=== PATIENT | male | born 1950 | race Caucasian/White ===

== ENCOUNTER → 2017-08-26 | Outpatient (CLI) | payer OTHER | END | disposition home or self-care (01) | LOC: KCIC MRI 12:55 | DX: M50.222 Other cervical disc displacement at C5-C6 level (principal); M48.02 Spinal stenosis, cervical region; M25.78 Osteophyte, vertebrae; M12.88 Other specific arthropathies, not elsewhere classified, other specified site | CPT/HCPCS: 72141 ==

== ENCOUNTER → 2017-09-17 | Outpatient (CLI) | payer OTHER | END | disposition home or self-care (01) | LOC: PNCL 10:01 | DX: M54.2 Cervicalgia (principal); M19.90 Unspecified osteoarthritis, unspecified site; I10 Essential (primary) hypertension; I82.409 Acute embolism and thrombosis of unspecified deep veins of unspecified lower extremity | CPT/HCPCS: G0463 ==

== ENCOUNTER → 2017-09-28 | Outpatient (CLI) | payer OTHER ==
[2017-09-28 09:53] LABS: PROTHROMBIN TIME PATIENT 12.7 SEC (11.7-14.0)
== END | disposition home or self-care (01) ==
LOC: LAB 09:22
DX: Z51.81 Encounter for therapeutic drug level monitoring (principal); Z79.01 Long term (current) use of anticoagulants
CPT/HCPCS: 36415; 85610

== ENCOUNTER → 2017-09-28 | Outpatient (CLI) | payer OTHER ==
[~2017-09-28] MED LIST: IOHEXOL 180 MG/ML 10 ML VIAL.; LIDOCAINE 2% PF 2ML VIAL.; methylPREDNISolone ACETATE 40 MG/ML VIAL.; methylPREDNISolone ACETATE 80 MG/ML VIAL.
== END | disposition home or self-care (01) ==
LOC: PNCL 09:49
DX: M50.123 Cervical disc disorder at C6-C7 level with radiculopathy (principal); M48.02 Spinal stenosis, cervical region; I10 Essential (primary) hypertension; M19.90 Unspecified osteoarthritis, unspecified site; Z79.899 Other long term (current) drug therapy; I82.409 Acute embolism and thrombosis of unspecified deep veins of unspecified lower extremity
CPT/HCPCS: 62321; J1030; J1040; J2001; Q9965

== ENCOUNTER → 2017-11-12 | Outpatient (CLI) | payer OTHER ==
[~2017-11-12] MED LIST changes: +ALLO100T PO; +DESO60OI7 TP; +EZET10TA18 PO; +FLUT16SP NS; +FURO40TA4 PO; +HYDR59LO TP; -IOHEXOL 180 MG/ML 10 ML VIAL.; +LEVO5TAB2 PO; -LIDOCAINE 2% PF 2ML VIAL.; +LISI-334 PO; +MELA3TAB2 PO; +MULT-245 PO; +OMEG1CAP27 PO; +TAMS0.4C2 PO; +VIT1TABL32 PO; +WARF2TAB96 PO; +ZOLP5TAB5 PO; -methylPREDNISolone ACETATE 40 MG/ML VIAL.; -methylPREDNISolone ACETATE 80 MG/ML VIAL.
--- NOTE | 2017-11-12 14:12 | PAIN ---
DATE OF SERVICE: 11/12/2017 PROGRESS NOTE FOR PAIN CLINIC DIAGNOSIS: Cervical radiculopathy with cervical spinal stenosis and cervical degenerative disk disease. HISTORY OF PRESENT ILLNESS: The patient is a 67-year-old male who returns for followup status post cervical epidural steroid injection x 1. The patient reports he did very well with about a 75% improvement for one month following the injection. The patient reports the pain is returning now in the base of his neck and left upper extremity radiating into the left arm and left bicep and into the hand with numbness and tingling in the fingers on the left side. The patient reports it is aching, tight, tingling, on and off in intensity, but worse with activity, worse with using his left arm, raising his arm up or back and driving a car with his left hand. The patient reports it does not awaken him from sleep at night; however, he feels much better with sitting or lying down, worse with lifting items or use of the left shoulder. The patient reports the pain is a 3 on a scale of 10 at its worst, 2 on average, 1 at its least and is a 2 today. The patient reports no loss of motor function, but still significant radicular pain radiating into the left upper extremity in a C6-C7 dermatomal distribution. The patient reports no other complaints at this time. PHYSICAL EXAMINATION: VITAL SIGNS: The patient's blood pressure 140/85, pulse 81, respirations 18, temperature 98.2 degrees Fahrenheit, height is 6 feet, weight is 294 pounds. GENERAL: The patient is awake, alert, oriented, appropriate, very pleasant demeanor. HEENT: Head shows normocephalic, atraumatic. Extraocular movements are intact and symmetrical. Oral cavity: Mucous membranes are moist and pink. Dentition is intact. NECK: Shows anterior throat supple without palpable lymphadenopathy noted. Swallow reflex is symmetrical. CHEST: Shows normal on inspection. Breath sounds are clear to auscultation bilaterally. HEART: Shows S1, S2 clear. No murmurs auscultated. ABDOMEN: Soft, nontender, nondistended. No palpable organomegaly is noted. No rebound or guarding demonstrated. BACK: Shows spine grossly in the midline. Cervical paraspinous muscle shows symmetrical on inspection, on palpation shows some moderate tenderness diffusely in the middle and lower aspect of the cervical paraspinous muscles into the superior left trapezius and medial aspect as well. The patient shows good rotational motion of cervical spine with some minor tenderness with far left lateral rotation past 45 degrees, but not with right lateral rotation, extension or flexion. EXTREMITIES: The patient's upper extremities show deep tendon reflexes at 2+ in the biceps and triceps tendons. Motor exam is approximately 4 on a scale of 5 with vocal teacher strength on the left and 5/5 on the right. Peripheral pulses are 2+ radial distribution. No peripheral edema is noted bilaterally. Shoulder shrug is strong and intact with some moderate tenderness with palpation on resistance on the left side with shoulder shrug as well as abduction of shoulder at 90 degrees, but without radiation and without loss of strength on resistance. Options were discussed with the patient. The patient's old chart was reviewed as his current medication regimen updated. Current review of systems updated today as well. We will preauthorize the patient for a second cervical epidural steroid injection. He did very well initially, about 75% improvement for the first month, now pain returning in a radicular fashion in left upper extremity in a C6-C7 dermatomal distribution. The patient is also taking Coumadin. We will have him hold this once again with PT and INR pending prior to his next appointment. We will plan on cervical epidural steroid injection #2 on his return. AKBAR CABRERA MD DR: REGGIE/luis a JOB#: [id number] / [id number]
== END | disposition home or self-care (01) ==
LOC: PNCL 10:19
PROVIDERS: ATTEND Anesthesiology
DX: M50.10 Cervical disc disorder with radiculopathy, unspecified cervical region (principal); M48.02 Spinal stenosis, cervical region; I10 Essential (primary) hypertension
CPT/HCPCS: G0463

== ENCOUNTER → 2017-12-02 | Outpatient (CLI) | payer OTHER ==
[~2017-12-02] MED LIST changes: +IOHEXOL 180 MG/ML 10 ML VIAL. ONE; +LIDOCAINE 2% PF 2ML VIAL. ONE; +methylPREDNISolone ACETATE 40 MG/ML VIAL. ONE; +methylPREDNISolone ACETATE 80 MG/ML VIAL. ONE
--- NOTE | 2017-12-02 23:54 | PAIN ---
DATE OF SERVICE: 12/02/2017 PROGRESS NOTE FOR PAIN CLINIC DIAGNOSES: Cervical radiculopathy with cervical spinal stenosis and cervical degenerative disk disease. HISTORY OF PRESENT ILLNESS: The patient is a 67-year-old male who returns for followup status post cervical epidural steroid injection x 1. The patient reports about 70% improvement for about a month following the injection. The patient reports still pain returning now in the base of the neck and left shoulder and upper extremity. The patient reports it is a 3 on a scale of 10 at its worst, 2 on average, 1 at its least but still returning with noticeable fatigue in the bilateral upper extremities. The patient reports it is aching, dull, tight, tingling, radiating, on and off in intensity, worse with activity using his left upper extremity repetitively. The patient reports it does not awaken him from sleep at night; however, he sleeps about 8 hours at a time without difficulties. No new motor or sensory deficits or other complaints. PHYSICAL EXAMINATION: VITAL SIGNS: The patient's blood pressure 151/86, pulse 88, respirations 18, temperature 97.8 degrees Fahrenheit, height 6 feet and weight is 299 pounds. GENERAL: The patient is awake, alert, oriented, appropriate and very pleasant demeanor. HEENT: Head shows normocephalic and atraumatic. Extraocular movements are intact and symmetrical. Oral cavity: Mucous membranes moist and pink. Dentition is intact. NECK: Shows anterior throat supple without palpable lymphadenopathy noted. Swallow reflex symmetrical. CHEST: Shows normal on inspection. Breath sounds clear to auscultation bilaterally. HEART: Shows S1 and S2 clear. No murmurs auscultated. ABDOMEN: Soft, nontender and nondistended. No palpable organomegaly is noted. No rebound or guarding demonstrated. BACK: Shows spine grossly in the midline. Cervical paraspinous muscle shows symmetrical on inspection with normal cervical lordotic curvature. Paraspinous musculature shows moderately tender with palpation in the inferior aspect of the cervical paraspinous muscles but only diffusely without radiation, somewhat more on the left trapezius superiorly than the right, but without trigger points and without asymmetry. The patient has good rotational motion of the cervical spine, both laterally greater than 45 degrees right and left as well as extension and full flexion without significant difficulty or pain reported. EXTREMITIES: The patient's upper extremities show deep tendon reflexes 2+ in the biceps and triceps tendons. Motor exam is approximately 4 on a scale 5 with left handle maker strength, 5/5 on the right. Peripheral pulses are 2+ radial distribution. No peripheral edema is noted bilaterally. Options were discussed with the patient. The patient's old chart was reviewed as well as his current medication regimen updated. Current review of systems updated today as well and we will proceed with a cervical epidural steroid injection, the second in the series with fluoroscopic guidance. Risks were again discussed including, but not limited to bleeding, infection, possibility of epidural hematoma, subsequent neurologic compromise, dural puncture, headaches, spinal cord and/or nerve damage, side effects of steroid medication and poor results regarding pain control. The patient understands and wished to proceed. The patient will return to the clinic in approximately 2 weeks for followup, was counseled as to return appointment, activity level and side effects to be aware of. DIAGNOSES: Cervical radiculopathy with cervical spinal stenosis and cervical degenerative disk disease. PROCEDURE: Cervical epidural steroid injection, translaminar approach, C6-C7 level using C-arm fluoroscopic guidance under sterile prep and drape using local anesthetic. MEDICATION INJECTED: A total of 120 mg Depo-Medrol plus 5 mL of preservative-free normal saline and 2 mL of Isovue for contrast. CONDITION AT DISCHARGE: Stable. The patient tolerated the procedure well and had no complications. AKBAR CABRERA MD DR: REGGIE/luis a JOB#: [id number] / [id number]
== END | disposition home or self-care (01) ==
LOC: PNCL 10:18
PROVIDERS: ATTEND Anesthesiology
DX: M50.123 Cervical disc disorder at C6-C7 level with radiculopathy (principal); M48.02 Spinal stenosis, cervical region; I10 Essential (primary) hypertension; Z79.899 Other long term (current) drug therapy; Z98.890 Other specified postprocedural states
CPT/HCPCS: 36415; 62321; 85610; J1030; J1040; J2001; Q9965

== ENCOUNTER → 2018-02-01 | Outpatient (CLI) | payer OTHER ==
[~2018-02-01] MED LIST changes: +DESO15CR8 TP; +ENOX120D SQ; +HYDR453.3 TP; -IOHEXOL 180 MG/ML 10 ML VIAL. ONE; -LIDOCAINE 2% PF 2ML VIAL. ONE; +MULT1TAB52 PO; +OMEG1CAP66 PO; +TAMS0.4C97 PO; -methylPREDNISolone ACETATE 40 MG/ML VIAL. ONE; -methylPREDNISolone ACETATE 80 MG/ML VIAL. ONE
--- NOTE | 2018-02-01 16:02 | EKG ---
[facility] [address] [place] [address] Test Date: 2018-02-01 Test Time: 15:40:56 Pat Name: NIKHIL CALVILLO Department: Room: Gender: M [employer] Feeder: ROSALVA : 1950 Requested By: RENETTA ODONNELL Order Number: [id number] Reading MD: Huang Hanna Measurements Intervals Shaw Rate: 63 P: 0 NC: 146 QRS: 29 QRSD: 84 T: 61 QT: 412 QTc: 425 Interpretive Statements SINUS RHYTHM NORMAL ECG Electronically Signed On 02-03-2018 15:53:52 SIEBEL ADMINISTRATOR by Huang Hanna
== END | disposition home or self-care (01) ==
LOC: SURGPAT 13:16
PROVIDERS: ATTEND Neurological Surgery
DX: Z01.818 Encounter for other preprocedural examination (principal); M48.02 Spinal stenosis, cervical region; M54.12 Radiculopathy, cervical region; I10 Essential (primary) hypertension
CPT/HCPCS: 36415; 87641; 93005

== ENCOUNTER → 2019-01-25 | Outpatient (CLI) | payer OTHER ==
[2018-02-12 11:29] VITALS: BP 150/69
[~2019-01-25] MED LIST changes: +DOCU-109 PO; -EZET10TA18 PO; +EZET10TA20 PO; +GADOTERATE 7.5 MMOL/15ML VIAL. IVP ONE; -MELA3TAB2 PO; +MELA3TAB56 PO; +METH750T2 PO; +OXYC1TAB15 PO
--- NOTE | 2019-01-25 14:21 | KCIC ---
STUDY: MR cervical spine with and without contrast INDICATION: Cervical stenosis. History of surgery in January 2018. Neck pain and stiffness. Bilateral upper extremity numbness. COMPARISON: MRI of the cervical spine 08/26/2017 TECHNIQUE: Multiplanar MR imaging of the cervical spine performed both prior to and after the intravenous administration of 26 cc Dotarem. FINDINGS: Study degradation on account of motion artifact mainly involving the axial T2 sequence. Interval operative changes of anterior cervical discectomy and fusion from C5 through C7. The integrity of the hardware is not well assessed by MRI nor is the degree of any potential bony fusion across the operative levels. Straightening of cervical lordosis. Disc space height is maintained above and below the operative levels. No newly seen vertebral body height loss or malalignment. Taking into consideration artifact associated with the surgical hardware, no suspicious marrow signal abnormality seen throughout. There is slightly more conspicuous degenerative endplate signal changes along the inferior endplate at C4. Taking into consideration artifact mainly secondary to motion, no newly seen cord signal abnormality. Unremarkable paraspinous soft tissues. No pathologic enhancement. C1-C2: The region of the foramen magnum is patent. C2-C3: Disc osteophyte complex, left more so than right uncovertebral joint hypertrophy and bilateral facet degeneration. Unchanged configuration of the central canal without significant central canal stenosis. Redemonstrated severe left and moderate right neural foraminal stenosis. C3-C4: Unchanged mild disc osteophyte complex, left more so than right facet degeneration and left more so than right uncovertebral joint hypertrophy. No interval development of significant central canal stenosis. Unchanged severe left and mild right neural foraminal stenosis. C4-C5: Unchanged mild disc osteophyte complex, uncovertebral joint hypertrophy and bilateral facet degeneration. No newly seen central canal stenosis. Unchanged moderate right and mild left neural foraminal stenosis. C5-C6: Operative level. Persistent ventral cord deformity however much less pronounced central canal stenosis relative to the prior with maintained patency of the ventral and dorsal thecal sac. Uncovertebral joint hypertrophy and facet degeneration. There is less pronounced bilateral neural foraminal encroachment but still appearing moderate on both the right and left. This is best appreciated on the gradient axial sequence. C6-C7: Operative level. Similar configuration of the central canal with mild stenosis. There does appear to be slightly less pronounced bilateral neural foraminal encroachment now appearing more moderate on the left and mild on the right. This is best assessed on the gradient axial sequence as the T2 axial sequence is significantly degraded by motion. C7-T1: No interval development of central canal stenosis. Bilateral facet degeneration with relatively mild bilateral neural foraminal stenosis that is slightly more pronounced on the right. T1-T2: Patent central canal. Facet degeneration with mild bilateral neural foraminal stenosis. IMPRESSION: 1. Status post ACDF at C5-C7. No complicating features by MRI across the operative levels. 2. Less pronounced central canal stenosis at C5-C6 relative to the preoperative MRI, now only mild. No newly seen central canal stenosis throughout. 3. Multiple levels with neural foraminal encroachment as detailed on a level by level basis in the above report to include severe neural foraminal stenosis on the left at C2-C3 and on the left at C3-C4. The degree of neural foraminal stenosis at the operative levels has slightly diminished. 4. Taking consideration motion artifact, no cord signal abnormality. Electronically signed by: SERA JOSHUA MD (01/25/2019 2:18 PM) [facility]
== END | disposition home or self-care (01) ==
LOC: KCIC MRI 12:46
PROVIDERS: ATTEND Neurological Surgery
DX: M48.02 Spinal stenosis, cervical region (principal); Z98.890 Other specified postprocedural states; M25.78 Osteophyte, vertebrae
CPT/HCPCS: 72156; 82565; A9575